=== PATIENT | male | born 1980 | race Caucasian/White ===

== ENCOUNTER 2022-05-08 21:51 | Emergency (ER) | payer OTHER, BC ==
[2022-05-08] MEDS ORDERED: Sodium Chloride 0.9% 2.5 ML Syringe FLUSH PRN (21:52)
[2022-05-08] MEDS ORDERED: Sodium Chloride 0.9% 10 ML Syringe FLUSH PRN (21:52)
[2022-05-08] MEDS ORDERED: Sodium Chloride 0.9% 1,000 ML IV ONE (21:52)
[2022-05-08] MEDS ORDERED: Diphtheria,Pertussis(Acell),Tetanus Vaccine 0.5 ML Syringe IM ONE (21:52)
[2022-05-08 22:31] LABS: BLOOD UREA NITROGEN,BUN 14 mg/dL (7.0-18.0); CARBON DIOXIDE,CO2 26.6 mmol/L (21.0-32.0); CHLORIDE,CL 97 mmol/L (98-107); GLUCOSE RANDOM 155 mg/dL (74-106); LIPASE 126 U/L (73-393); POTASSIUM,K 3.7 mmol/L (3.5-5.1); SODIUM,NA 135 mmol/L (136-148)
[2022-05-08 22:33] LABS: ESTIMATED GFR 70 mL/min (>60)
[2022-05-08] MEDS ORDERED: Iopamidol 755 MG/ML 500 ML Multipack Bottle IVPUSH STA (22:50)
[2022-05-08] MEDS ORDERED: Lidocaine 1% with EPINEPHrine 1:100,000 10 ML MDV INJECT ONE (22:52)
[2022-05-08] MEDS: Sodium Chloride 0.9% 10 ML Syringe FLUSH PRN ×2 (22:56→23:20)
[2022-05-08] MEDS: Sodium Chloride 0.9% 2.5 ML Syringe FLUSH PRN ×2 (22:56→23:20)
[2022-05-08] MEDS ORDERED: Morphine 4 MG/ML VIAL IVPUSH ONE (23:14)
[2022-05-09] MEDS ORDERED: Tetracaine HCl/PF 0.5% 4 ML Bottle EYERT ONE (01:27)
[2022-05-09] MEDS ORDERED: Morphine 4 MG/ML VIAL IVPUSH ONE (01:54)
[2022-05-09] MEDS ORDERED: HYDROmorphone 1 MG/ML Syringe IVPUSH ONE ×2 (02:48→04:22)
[2022-05-09] MEDS ORDERED: HYDROmorphone 1 MG/ML Syringe ONE (04:24)
== END 2022-05-09 04:40 ==
LOC: MW.ED 21:51
DX: S02.2XXA Fracture of nasal bones, initial encounter for closed fracture (principal); S42.109A Fracture of unspecified part of scapula, unspecified shoulder, initial encounter for closed fracture; T15.91XA Foreign body on external eye, part unspecified, right eye, initial encounter; S01.01XA Laceration without foreign body of scalp, initial encounter; Z23 Encounter for immunization; V49.40XA Driver injured in collision with unspecified motor vehicles in traffic accident, initial encounter; Y92.410 Unspecified street and highway as the place of occurrence of the external cause
CPT/HCPCS: 12016; 36415; 70450; 70486; 71045; 71260; 72125; 72128; 72131; 72170; 74177; 80053; 80307; 81001; 83690; 85025; 85610; 86850; 86900; 86901; 90471; 90715; 93005; 96374; 96375; 96376; 99285; J1170; J2270; J3490; J7030; Q9967; 93010

== ENCOUNTER 2022-05-10 07:13 | Emergency (ER) | payer OTHER, BC ==
[2022-05-10] MEDS ORDERED: Ondansetron 4 MG Tab.DIS PO ONE (08:35)
== END 2022-05-10 09:18 | disposition home or self-care (01) ==
LOC: MW.ED 07:13
DX: Z48.00 Encounter for change or removal of nonsurgical wound dressing (principal); S00.12XA Contusion of left eyelid and periocular area, initial encounter; S00.11XA Contusion of right eyelid and periocular area, initial encounter; E11.9 Type 2 diabetes mellitus without complications; Z79.84 Long term (current) use of oral hypoglycemic drugs
CPT/HCPCS: 99282; A9270; 99283